=== PATIENT | male | born 1950 | race Caucasian/White ===

== ENCOUNTER 2019-07-23 07:16 | Outpatient (CLI) | payer MEDICARE, OTHER, SELFPAY ==
--- NOTE | ~2019-07-23 | PE_ITS ---
EXAMINATION: PET skull to mid thigh DATE: 07/23/2019 09:30 INDICATION: Malignant neoplasm of lower third of esophagus. TECHNIQUE: Blood glucose level was 97 mg/dL. 10.269 mCi of 18-fluorodeoxyglucose (18-FDG) was adminis tered i.v. Low dose computed tomography (CT) images were acquired from the base of the brain to the p roximal thighs for attenuation correction and anatomic localization. Automated exposure control was e mployed. Dose-length product (DLP) was 1259 mGy-cm. Positron emission tomography (PET) images were ac quired in the same distribution. COMPARISON: None FINDINGS: Head/neck: There is increased activity in the oral cavity, palatine tonsils, and glottis without CT c orrelate, likely physiologic. There are no pathologically enlarged lymph nodes. There is mild mucosal thickening in the paranasal sinuses. Chest: Calcified left lung nodules and calcified left hilar and mediastinal lymph nodes are consisten t with old granulomatous disease. No pleural effusion. The heart size is normal. There are coronary a rtery calcifications. No pericardial effusion. There is wall thickening of the distal esophagus with maximum SUV of 17.1. Abdomen/pelvis/proximal thighs: The liver, gallbladder, spleen, pancreas, adrenal glands, and kidneys are normal. There are no dilated loops of bowel. There is a 2.7 x 2.0 cm gastrohepatic lymph node wi th maximum SUV of 7.0. There is no free intraperitoneal fluid. The prostate is mildly enlarged. There is mildly increased activity in some thoracolumbar vertebral bodies without CT correlate, likely bon e marrow stimulation. IMPRESSION: 1. Wall thickening of the distal esophagus with increased activity, consistent with primary malignanc y. 2. Enlarged gastrohepatic lymph node with increased activity, consistent with metastatic disease. Reviewed, dictated and finalized at location A. IMPRESSION: 1. Wall thickening of the distal esophagus with increased activity, consistent with primary malignancy. 2. Enlarged gastrohepatic lymph node with increased activity, consistent with m etastatic disease.
[2019-07-23 07:52] LABS: Glucose Point of Care 97 (65-105)
== END 2019-07-23 07:17 | disposition home or self-care (01) ==
PROVIDERS: Visit Provider Internal Medicine
DX: C15.5 Malignant neoplasm of lower third of esophagus (principal); R59.0 Localized enlarged lymph nodes
CPT/HCPCS: 78815; A9552